=== PATIENT | female | born 1980 | race Caucasian/White ===

== ENCOUNTER 2022-04-15 18:11 | Emergency (ER) | payer BC, MEDICAID ==
[~2022-04-15] VITALS: Ht 170.2 cm; Wt 116.8 kg
[2022-04-15] MEDS ORDERED: SERT50TA29 (18:18)
[2022-04-15] MEDS ORDERED: NS 1,000 ML IV ONE (20:35)
[2022-04-15] MEDS ORDERED: ISOVUE-370 76% 100ML VIAL As Ordered ONE (20:35)
[2022-04-15 21:04] LABS: BASO # 0.1 10^3/uL (0.0-0.2); EOS # 0.1 10^3/uL (0.0-0.5); HEMATOCRIT 39.3 % (36.0-47.0); HEMOGLOBIN 12.3 g/dl (12.0-15.5); LYMPH # 2.4 10^3/uL (1.5-5.0); LYMPH % 34.8 % (24.0-44.0); MEAN CORPUSCULAR HEMOGLOBIN 26.1 pg (27.0-33.0); MEAN CORPUSCULAR HGB CONC 31.3 g/dl (32.0-36.5); MEAN CORPUSCULAR VOLUME 83.3 fl (80.0-96.0); MONO # 0.6 10^3/uL (0.0-0.8); MONO % 7.9 % (2.0-8.0); NEUTROPHILS # 3.8 10^3/uL (1.5-8.5); NEUTROPHILS % 53.9 % (36.0-66.0); PLATELET COUNT, AUTOMATED 358 10^3/uL (150-450); RED BLOOD COUNT 4.72 10^6/uL (4.00-5.40)
[2022-04-15] MEDS ORDERED: KETOROLAC 30 MG/ML 1ML VIAL IV ONE (21:40)
[2022-04-15] MEDS ORDERED: METH-1165 PO (21:48)
[2022-04-15] MEDS ORDERED: methocarbamoL 750 MG TAB PO ONE (21:50)
[2022-04-15 21:56] VITALS: BP 137/85
== END 2022-04-15 22:03 | disposition home or self-care (01) ==
LOC: M ED 18:11
DX: M54.6 Pain in thoracic spine (principal); S20.219A Contusion of unspecified front wall of thorax, initial encounter; W10.9XXA Fall (on) (from) unspecified stairs and steps, initial encounter; Y92.009 Unspecified place in unspecified non-institutional (private) residence as the place of occurrence of the external cause; Z79.899 Other long term (current) drug therapy
CPT/HCPCS: 71111; 71260; 80047; 85025; 96361; 96374; 99284; J1885

== ENCOUNTER 2022-07-27 18:45 | Emergency (ER) | payer BC ==
[~2022-07-27] VITALS: Ht 170.2 cm; Wt 117.9 kg
[~2022-07-27 18:45] MED LIST: METH-1165 PO; SERT50TA29
[2022-07-27 19:41] LABS: BASO # 0.1 10^3/uL (0.0-0.2); BASO % 0.9 % (0.0-1.0); EOS # 0.2 10^3/uL (0.0-0.5); EOS % 1.9 % (0.0-3.0); HEMATOCRIT 38.7 % (36.0-47.0); HEMOGLOBIN 12.3 g/dl (12.0-15.5); LYMPH # 2.7 10^3/uL (1.5-5.0); LYMPH % 30.8 % (24.0-44.0); MEAN CORPUSCULAR HGB CONC 31.8 g/dl (32.0-36.5); MEAN CORPUSCULAR VOLUME 81.8 fl (80.0-96.0); MONO # 0.6 10^3/uL (0.0-0.8); MONO % 6.8 % (2.0-8.0); NEUTROPHILS # 5.2 10^3/uL (1.5-8.5); NEUTROPHILS % 59.4 % (36.0-66.0); PLATELET COUNT, AUTOMATED 315 10^3/uL (150-450); RED BLOOD COUNT 4.73 10^6/uL (4.00-5.40); WHITE BLOOD COUNT 8.7 10^3/uL (4.0-10.0)
[2022-07-27 20:05] LABS: LIPASE 29 U/L (12-53)
[2022-07-27 20:11] LABS: ALBUMIN 3.8 G/DL (3.2-5.2); ALKALINE PHOSPHATASE 55 U/L (46-116); ALT/SGPT 16 U/L (7.0-40); AST/SGOT 19 U/L (<34); BILIRUBIN,TOTAL 0.7 MG/DL (0.3-1.2); BLOOD UREA NITROGEN 12 MG/DL (9-23); CALCIUM LEVEL 9.2 MG/DL (8.5-10.1); CARBON DIOXIDE LEVEL 25 MMOL/L (20-31); CHLORIDE LEVEL 106 MMOL/L (98-107); CREATININE FOR GFR 0.59 MG/DL (0.55-1.30); GLOMERULAR FILTRATION RATE > 60.0 (>58); GLUCOSE, FASTING 106 MG/DL (60-100); POTASSIUM SERUM 4.1 MMOL/L (3.5-5.1); SODIUM LEVEL 137 MMOL/L (136-145); TOTAL PROTEIN 6.6 G/DL (5.7-8.2)
[2022-07-27] MEDS ORDERED: NS 1,000 ML IV ONE (20:25)
[2022-07-27] MEDS ORDERED: PANTOPRAZOLE 40MG VIAL IV ONE (20:25)
[2022-07-27] MEDS ORDERED: ISOVUE-370 76% 100ML VIAL As Ordered ONE (20:30)
[2022-07-27] MEDS ORDERED: CARA1TAB6 PO (21:33)
[2022-07-27] MEDS ORDERED: OMEP40CA4 PO (21:33)
[2022-07-27] MEDS ORDERED: ONDA4TAB6 PO (21:35)
[2022-07-27 21:56] VITALS: BP 143/70
== END 2022-07-27 21:58 | disposition home or self-care (01) ==
LOC: M ED 18:45
DX: K29.70 Gastritis, unspecified, without bleeding (principal); Z98.84 Bariatric surgery status; Z79.899 Other long term (current) drug therapy
CPT/HCPCS: 36415; 74177; 80053; 83605; 83690; 85025; 96374; 99284; C9113; Q9967

== ENCOUNTER → 2024-05-24 | Outpatient (CLI) | payer OTHER ==
[~2024-05-24] MED LIST changes: +CARA1TAB6 PO; +OMEP40CA4 PO; +ONDA-282 PO
== END ==
LOC: M RAD 11:40
PROVIDERS: ATTEND Physician Assistant
DX: R10.814 Left lower quadrant abdominal tenderness (principal); R11.2 Nausea with vomiting, unspecified; R50.9 Fever, unspecified; R31.9 Hematuria, unspecified; Z98.84 Bariatric surgery status; M43.17 Spondylolisthesis, lumbosacral region